=== PATIENT | male | born 1960 | race Caucasian/White ===

== ENCOUNTER 2019-06-09 23:37 | Emergency (ER) | payer MEDICARE, OTHER ==
--- NOTE | 2019-06-10 00:24 | ED ---
Respiratory - History of Current Complaint Chief Complaint: EDShortnessOfBreath Stated Complaint: SOB PER PT Time Seen by Provider: 06/10/19 00:23 Pain Intensity: 6 - Allergy/Home Medications Allergies/Adverse Reactions: Allergies Allergy/AdvReac Type Severity Reaction Status Date / Time aspirin Allergy Unknown Verified 06/09/19 23:43 Reaction Details latex Allergy Unknown Verified 06/09/19 23:43 Reaction Details pantoprazole [From Protonix] Allergy Unknown Verified 06/09/19 23:43 Reaction Details shellfish derived Allergy Unknown Verified 06/09/19 23:43 Reaction Details PMH/Surg Hx/FS Hx/Imm Hx Infectious Disease History: No Infectious Disease History: Denies: Traveled Outside the [place] in Last 30 Days Physical Exam Vital Signs On Initial Exam: Initial Vitals Temp Pulse Resp BP Pulse Ox 97.6 F 72 16 141/83 99 06/09/19 23:40 06/09/19 23:40 06/09/19 23:40 06/09/19 23:40 06/09/19 23:40 Diagnostics - Vital Signs Vital Signs Temp Pulse Resp BP Pulse Ox 06/09/19 23:40 97.6 F 72 16 141/83 99 - Laboratory Lab Statement: Any lab studies that have been ordered have been reviewed, and results considered in the medical decision making process. Discharge ED - Discharge Plan Referrals: No Primary Care Phys,NOPCP [Primary Care Provider] -
[2019-06-10] MEDS ORDERED: Albuterol/Ipratropium NEB.SOL* Albuterol 2.5 MG/Ipratropium 0.5 MG 3 ML INH ONE (01:02)
[2019-06-10 01:42] LABS: ABS Basophils 0.1 10^3/ul (0-0.2); ABS Eosinophils 0.4 10^3/ul (0-0.6); ABS Lymphocytes 2.4 10^3/ul (1.0-4.8); ABS Monocytes 0.5 10^3/ul (0-0.8); ABS Neutrophils 3.8 10^3/ul (1.5-7.7); Hematocrit 35 % (42-52); Hemoglobin 12.4 g/dL (14.0-18.0); Lymphocyte % 33.4 %; Mean Corpuscular HGB Conc 36 g/dL (31-36); Mean Corpuscular Hemoglobin 32 pg (27-31); Mean Corpuscular Volume 91 fL (80-94); Mean Platelet Volume 8.2 fL (7.4-10.4); Platelet Count 146 10^3/uL (150-450); Red Blood Count 3.84 10^6 /uL (4.18-5.48); Red Cell Distribution Width 14 % (10-15); White Blood Count 7.2 10^3/uL (3.5-10.8)
[2019-06-10 01:59] LABS: Albumin 3.7 g/dL (3.2-5.2); Albumin/Globulin Ratio 1.4 (1-3); BUN/Creatinine Ratio 16.7 (8-20); Calcium 8.9 mg/dL (8.6-10.3); EGFR African American 136.2 (>60); EGFR Non-African American 112.5 (>60); Globulin 2.7 g/dL (2-4); Potassium 3.8 mmol/L (3.5-5.0); Total Bilirubin 0.6 mg/dL (0.2-1.0); Total Protein 6.4 g/dL (6.4-8.9)
[2019-06-10 02:01] LABS: Troponin I 0.01 ng/mL (<0.04)
--- NOTE | 2019-06-10 02:35 | ED ---
Shortness of Breath - HPI Summary HPI Summary: Patient is a 59 year old M presenting to [facility] accompanied by with a chief complaint of SOB since 1999. Patient states he took inhalers at home with no improvement of his symptoms. Patient reports cough. Patient reports chest pain which he states is from his dog jumping up on his chest. Patient denies recent sickness. Patient denies n/v/d and fever. Patient rates the pain 6/10. Symptoms aggravated by nothing. Symptoms alleviated by nothing. - History of Current Complaint Chief Complaint: EDShortnessOfBreath Time Seen by Provider: 06/10/19 00:23 Hx Obtained From: Patient Onset/Duration: Sudden Onset, Lasting Hours, Resolved Timing: Constant Current Severity: Mild Dyspnea At: Rest Aggravating Factors: Nothing Alleviating Factors: Nothing Associated Signs & Symptoms: Cough (Nonproductive) - Allergy/Home Medications Allergies/Adverse Reactions: Allergies Allergy/AdvReac Type Severity Reaction Status Date / Time aspirin Allergy Unknown Verified 06/09/19 23:43 Reaction Details latex Allergy Unknown Verified 06/09/19 23:43 Reaction Details pantoprazole [From Protonix] Allergy Unknown Verified 06/09/19 23:43 Reaction Details shellfish derived Allergy Unknown Verified 06/09/19 23:43 Reaction Details Home Medications: Home Medications Albuterol HFA INHALER* [Ventolin HFA Inhaler*] 2 puff INH Q4HR PRN 06/10/19 [ History Confirmed 06/10/19] Bisoprolol TAB* [Zebeta TAB*] 5 mg PO DAILY 06/10/19 [History Confirmed 06/10/19 ] DULoxetine CAP* [Cymbalta CAP*] 30 mg PO DAILY 06/10/19 [History Confirmed ] Fluticasone-Salmeterol 500-50* [Advair Diskus 500-50*] 2 puff INH DAILY [History Confirmed 06/10/19] Furosemide TAB* [Lasix TAB*] 80 mg PO BID 06/10/19 [History Confirmed 06/10/19] Humalog N 100 unit SUBCUT TID 06/10/19 [History Confirmed 06/10/19] Insulin LISPRO* [HumaLOG*] 100 unit SUBCUT TID 06/10/19 [History Confirmed 06/10] Lisinopril TAB* [Prinivil TAB 10 MG*] 10 mg PO DAILY 06/10/19 [History Confirmed 06/10/19] Lovastatin 40 mg PO DAILY 06/10/19 [History Confirmed 06/10/19] Magnesium Oxide [Magnesium] 400 mg PO DAILY 06/10/19 [History Confirmed 06/10/19 ] Montelukast Sodium TAB* [Singulair 10 MG TAB*] 10 mg PO DAILY 06/10/19 [History Confirmed 06/10/19] Potassium Chlor TAB* [Klor Con ER TAB 10 MEQ*] 40 mg PO DAILY 06/10/19 [History Confirmed 06/10/19] metFORMIN* [Glucophage 500 MG TAB *] 500 mg PO BID 06/10/19 [History Confirmed 06/10/19] PMH/Surg Hx/FS Hx/Imm Hx Endocrine/Hematology History: Reports: Hx Diabetes Cardiovascular History: Denies: Hx Hypertension Sensory History: Denies: Hx Legally Blind, Hx Deafness Opthamlomology History: Denies: Hx Legally Blind EENT History: Denies: Hx Deafness Infectious Disease History: No Infectious Disease History: Denies: Traveled Outside the [place] in Last 30 Days - Family History Known Family History: Positive: Hypertension, Diabetes, Other - cancer - Social History Alcohol Use: None Substance Use Type: Reports: None Hx Tobacco Use: No Smoking Status (MU): Never Smoked Tobacco Review of Systems Negative: Fever Positive: Chest Pain - due to dog jumping on chest Positive: Cough Negative: Vomiting, Nausea All Other Systems Reviewed And Are Negative: Yes Physical Exam - Summary Physical Exam Summary: General: Well-developed, Morbidly obese MALE. No acute distress. HEENT: Normocephalic, Atraumatic. Eyes: Conjuctiva normal, PERRL. Ears: TMs within normal limits. Nares: (-) discharge, (-) erythema. Oropharynx: Clear, mucous membranes moist, (-) exudates. Neck: Soft, FROM, (-) lymphadenopathy, (-) thyromegaly, (-) JVD. Cardiovascular: Normal sinus rhythm, (-) murmur. Lungs: Clear to auscultation bilaterally Mild wheezing through out , (-) rales, (-) rhonchi. Abdomen: Soft, non-tender, non-distended, (-) organomegaly, normal bowel sounds. Back: (-) CVA tenderness Extremities: Plus one edema bilateral lower extremities. Skin: Warm, dry, (-) rash. Neuro: Alert and oriented x3, no focal deficits. Psychiatric: Mood normal, affect normal. Triage Information Reviewed: Yes Vital Signs On Initial Exam: Initial Vitals Temp Pulse Resp BP Pulse Ox 97.6 F 72 16 141/83 99 06/09/19 23:40 06/09/19 23:40 06/09/19 23:40 06/09/19 23:40 06/09/19 23:40 Vital Signs Reviewed: Yes Diagnostics - Vital Signs Vital Signs Temp Pulse Resp BP Pulse Ox 06/10/19 01:50 69 20 122/68 97 06/10/19 01:17 70 21 98 06/10/19 01:08 71 25 118/48 97 06/10/19 01:00 67 17 98 06/10/19 00:38 68 19 124/56 97 06/10/19 00:08 64 131/69 98 06/10/19 00:07 66 98 06/09/19 23:40 97.6 F 72 16 141/83 99 - Laboratory Lab Results: Lab Results 06/10/19 06/10/19 06/10/19 Range/Units 01:33 01:33 01:33 WBC 7.2 (3.5-10.8) 10^3/uL RBC 3.84 L (4.18-5.48) 10^6 /uL Hgb 12.4 L (14.0-18.0) g/dL Hct 35 L (42-52) % MCV 91 (80-94) fL MCH 32 H (27-31) pg MCHC 36 (31-36) g/dL RDW 14 (10-15) % Plt Count 146 L (150-450) 10^3/uL MPV 8.2 (7.4-10.4) fL Neut % (Auto) 52.9 % Lymph % (Auto) 33.4 % Hickman % (Auto) 6.7 % Eos % (Auto) 6.0 % Baso % (Auto) 1.0 % Absolute Neuts (auto) 3.8 (1.5-7.7) 10^3/ul Absolute Lymphs (auto) 2.4 (1.0-4.8) 10^3/ul Absolute Monos (auto) 0.5 (0-0.8) 10^3/ul Absolute Eos (auto) 0.4 (0-0.6) 10^3/ul Absolute Basos (auto) 0.1 (0-0.2) 10^3/ul Absolute Nucleated RBC 0.0 10^3/ul Nucleated RBC % 0.0 Sodium 136 (135-145) mmol/L Potassium 3.8 (3.5-5.0) mmol/L Chloride 106 (101-111) mmol/L Carbon Dioxide 23 (22-32) mmol/L Anion Gap 7 (2-11) mmol/L BUN 12 (6-24) mg/dL Creatinine 0.72 (0.67-1.17) mg/dL Est GFR ( Amer) 136.2 (>60) Est GFR (Non-Af Amer) 112.5 (>60) BUN/Creatinine Ratio 16.7 (8-20) Glucose 160 H (70-100) mg/dL Lactic Acid 1.7 (0.5-2.0) mmol/L Calcium 8.9 (8.6-10.3) mg/dL Total Bilirubin 0.60 (0.2-1.0) mg/dL AST 37 (13-39) U/L ALT 48 (7-52) U/L Alkaline Phosphatase 69 (34-104) U/L Troponin I 0.01 (<0.04) ng/mL B-Natriuretic Peptide (<=100) pg/mL Total Protein 6.4 (6.4-8.9) g/dL Albumin 3.7 (3.2-5.2) g/dL Globulin 2.7 (2-4) g/dL Albumin/Globulin Ratio 1.4 (1-3) 06/10/19 Range/Units 01:33 WBC (3.5-10.8) 10^3/uL RBC (4.18-5.48) 10^6 /uL Hgb (14.0-18.0) g/dL Hct (42-52) % MCV (80-94) fL MCH (27-31) pg MCHC (31-36) g/dL RDW (10-15) % Plt Count (150-450) 10^3/uL MPV (7.4-10.4) fL Neut % (Auto) % Lymph % (Auto) % Hickman % (Auto) % Eos % (Auto) % Baso % (Auto) % Absolute Neuts (auto) (1.5-7.7) 10^3/ul Absolute Lymphs (auto) (1.0-4.8) 10^3/ul Absolute Monos (auto) (0-0.8) 10^3/ul Absolute Eos (auto) (0-0.6) 10^3/ul Absolute Basos (auto) (0-0.2) 10^3/ul Absolute Nucleated RBC 10^3/ul Nucleated RBC % Sodium (135-145) mmol/L Potassium (3.5-5.0) mmol/L Chloride (101-111) mmol/L Carbon Dioxide (22-32) mmol/L Anion Gap (2-11) mmol/L BUN (6-24) mg/dL Creatinine (0.67-1.17) mg/dL Est GFR ( Amer) (>60) Est GFR (Non-Af Amer) (>60) BUN/Creatinine Ratio (8-20) Glucose (70-100) mg/dL Lactic Acid (0.5-2.0) mmol/L Calcium (8.6-10.3) mg/dL Total Bilirubin (0.2-1.0) mg/dL AST (13-39) U/L ALT (7-52) U/L Alkaline Phosphatase (34-104) U/L Troponin I (<0.04) ng/mL B-Natriuretic Peptide 131 H (<=100) pg/mL Total Protein (6.4-8.9) g/dL Albumin (3.2-5.2) g/dL Globulin (2-4) g/dL Albumin/Globulin Ratio (1-3) Result Diagrams: 06/10/19 01:33 06/10/19 01:33 Lab Statement: Any lab studies that have been ordered have been reviewed, and results considered in the medical decision making process. - Radiology Chest Xray Radiology Interpretation Completed By: ED Physician Summary of Radiographic Findings: Chest Xray reveals, per ED Physician, Cardio megaly increased, interstitial markings, no consolidations or effusions noted. Pending offical report. Course/Dx - Course Course Of Treatment: 59 year old male with asthma exacerbation. patient improved significantly after one nebulizer treatment. workup essentially negative. patient discharged to home. follow up with PCP. take home meds as directed. follow up sooner for any worsening symptoms. - Diagnoses Provider Diagnoses: Asthma attack Discharge ED - Sign-Out/Discharge Documenting (check all that apply): Patient Departure Patient Received Moderate/Deep Sedation with Procedure: No - Discharge Plan Condition: Stable Disposition: HOME Patient Education Materials: Asthma (ED) Referrals: [facility] [Outside] - 3 Days Additional Instructions: Please follow up with your primary care physician within three days. Please return to ED for any new or worsening symptoms. - Billing Disposition and Condition Condition: STABLE Disposition: Home - Attestation Statements Document Initiated by Ángeliblizy: Yes Documenting Scribe: Tiffani Mejia Provider For Whom Chrystal is Documenting (Include Credential): Dr. Malinda Herman MD Scribe Attestation: Tiffani Turpin scribed for Dr. Malinda Herman MD on 06/10/19 at 0629. Scribe Documentation Reviewed: Yes Provider Attestation: The documentation as recorded by the Tiffani yost accurately reflects the service I personally performed and the decisions made by , Dr. Malinda Herman MD Status of Scribe Document: Viewed
[2019-06-10 02:42] VITALS: BP 124/69
== END 2019-06-10 02:41 | disposition home or self-care (01) ==
LOC: ED 23:37
DX: J45.901 Unspecified asthma with (acute) exacerbation (principal); I51.7 Cardiomegaly; J44.9 Chronic obstructive pulmonary disease, unspecified; E11.9 Type 2 diabetes mellitus without complications; Z79.4 Long term (current) use of insulin; Z79.899 Other long term (current) drug therapy; Z88.8 Allergy status to other drugs, medicaments and biological substances; Z88.6 Allergy status to analgesic agent; Z91.040 Latex allergy status
CPT/HCPCS: 36415; 71046; 80053; 83605; 83880; 84484; 85025; 87040; 93005; 99283; A9270-GY